=== PATIENT | male | born 1930 | race Caucasian/White ===

== ENCOUNTER 2017-01-11 16:08 | Inpatient (IN) | payer OTHER ==
[~2017-01-11] VITALS: Ht 175.3 cm; Wt 95.5 kg
[~2017-01-11 16:08] MED LIST: ADVAIR HFA120 INHALA IH; AEROECLIPSE1 EACH MC; AMLODIPINE BESYL5 MG PO; DALIRESP500 MCG PO; DUONEB 2.5-0.5 M3 ML IH; HYDROXYZINE PAM25 MG PO; LEVAQUIN750 MG PO; METOPROLOL SUCC25 MG; METOPROLOL TART25 MG PO; NORVASC5 MG PO; OMEPRAZOLE20 MG PO; PREDNISONE10 MG PO; PREDNISONE20 MG PO; PRILOSEC20 MG; PROAIR HFA8.5 GM IH; SIMVASTATIN; SIMVASTATIN20 M1 PO; SIMVASTATIN20 MG PO; SPIRIVA1 INHALATI IH; TOPROL XL50 MG; TYLENOL EXTRA500 MG PO
[2017-01-11 16:42] LABS: HEMATOCRIT 48.1 % (38.0-50.0); MCH 31.8 PG (29.0-34.0); MCHC 32.6 G/DL (30.0-36.0); MCV 97.6 FL (86-99); MEAN PLAT.VOLUME 10.1 uM^3 (9.0-12.4); PLATELET COUNT 170 K/uL (156-360); RBC DIS.WIDTH-CV 16.2 % (11.8-14.6); RBC DIS.WIDTH-SD 55.3 % (39-53); RED BLOOD COUNT 4.93 M/uL (4.00-5.50); WHITE BLOOD COUNT 8.9 K/uL (4.1-10.2)
[2017-01-11 16:50] LABS: CHLORIDE 111 mEq/L (99-109); POTASSIUM 4.6 mEq/L (3.7-5.4); SODIUM 143 mEq/L (136-147)
[2017-01-11] MEDS ORDERED: ARCAPTA NEOHAL75 MCG IH (16:51)
[2017-01-11 16:53] LABS: ANION GAP 11 MEQ/L (2-14); GLUCOSE 98 mg/dL (70-99)
[2017-01-11 16:56] LABS: GFR ESTIMATE (CALCULATED) 51 mL/min/
[2017-01-11 16:57] LABS: UREA NITROGEN (BUN) 24 mg/dL (9-23)
[2017-01-11 17:30] LABS: TROP-I INTERPRETATION NEGATIVE; TROPONIN-I 0.04 ng/mL (0.0-0.30)
[2017-01-11 18:56] LABS: COLOR BLOODY ((YELLOW)); GLUCOSE (STRIP) NEGATIVE; LEUKOCYTES TRACE; NITRITE NEGATIVE; PROTEIN (STRIP) 300
[2017-01-11 18:57] LABS: ADD MIUA? YES; BILIRUBIN MODERATE; BLOOD LARGE; ICTOTEST NEGATIVE; KETONES NEGATIVE; RED BLOOD CELLS TNTC /HPF (0-5); UCUL ADDED? YES; UROBILINOGEN 0.2 MG/DL (0.2-1.0)
[2017-01-11] MEDS ORDERED: DUONEB 2.5-0.5 M3 ML AEROSOL (19:45)
[2017-01-11] MEDS ORDERED: TYLENOL EXTRA500 MG PO (19:46)
[2017-01-11 19:48] LABS: BASE EXCESS -1.5 mEq/L (-3 to +3); BICARBONATE 22.9 mEq/L (22-26); CARBOXY HGB 2.4 % (0-5); COMMENTS - BLOOD GASES C+A+; DEVICE NCH; O2 FLOW 8 L/MIN; PCO2 37 mm Hg (35-45); PO2 49 mm Hg (80-100); SITE RR
[2017-01-11 20:00] LABS: D-DIMER ELISA 2.08 mg/L FEU (< 0.57)
[2017-01-12 07:13] LABS: HEMATOCRIT 44.7 % (38.0-50.0); MCH 32.9 PG (29.0-34.0); MCHC 33.3 G/DL (30.0-36.0); MCV 98.7 FL (86-99); MEAN PLAT.VOLUME 10.7 uM^3 (9.0-12.4); PLATELET COUNT 150 K/uL (156-360); RBC DIS.WIDTH-CV 16.3 % (11.8-14.6); RBC DIS.WIDTH-SD 58.3 % (39-53); RED BLOOD COUNT 4.53 M/uL (4.00-5.50); WHITE BLOOD COUNT 9.3 K/uL (4.1-10.2)
[2017-01-12 07:20] LABS: EOSINOPHIL (%) 0 % (0-5); IMMATURE GRANULOCYTE (%) 0.2 % (0.0-0.7); LYMPHOCYTE COUNT 0.4 K/uL (1.0-2.8); MONOCYTE (%) 1.5 % (3-12); MONOCYTE COUNT 0.1 K/uL (0-0.8); NEUTROPHIL (%) 93.9 % (45-76); NEUTROPHIL COUNT 8.7 K/uL (1.8-6.4)
[2017-01-12 07:21] LABS: ANION GAP 11 MEQ/L (2-14); CHLORIDE 108 MEQ/L (99-109); GFR ESTIMATE (CALCULATED) 51 mL/min/; GLUCOSE 139 mg/dL (70-99); POTASSIUM 4.4 MEQ/L (3.7-5.4); SAMPLE HEMOLYSIS CHECK 0; SAMPLE ICTERIC CHECK 0; SAMPLE LIPEMIA CHECK 0; SODIUM 144 MEQ/L (136-147); UREA NITROGEN (BUN) 25 mg/dL (9-23)
[2017-01-12 07:30] LABS: TROP-I INTERPRETATION NEGATIVE; TROPONIN-I 0.05 ng/mL (0.0-0.30)
[2017-01-12 15:18] VITALS: BP 11/62; BP 111/62
[2017-01-12 19:20] VITALS: BP 112/62
[2017-01-12 23:50] VITALS: BP 108/63
[2017-01-13 03:27] VITALS: BP 107/67
[2017-01-13 07:24] VITALS: BP 103/58
[2017-01-13 11:37] VITALS: BP 95/56
[2017-01-13 15:51] VITALS: BP 108/60
[2017-01-13 19:53] VITALS: BP 127/71
[2017-01-14] VITALS (7 sets, daily range): BP systolic 90–108; BP diastolic 57–67
[2017-01-14 06:39] LABS: HEMATOCRIT 45.1 % (38.0-50.0); MCH 32.7 PG (29.0-34.0); MCHC 32.8 G/DL (30.0-36.0); MCV 99.6 FL (86-99); MEAN PLAT.VOLUME 10.2 uM^3 (9.0-12.4); PLATELET COUNT 141 K/uL (156-360); RBC DIS.WIDTH-CV 16.2 % (11.8-14.6); RBC DIS.WIDTH-SD 58.9 % (39-53); RED BLOOD COUNT 4.53 M/uL (4.00-5.50); WHITE BLOOD COUNT 11.6 K/uL (4.1-10.2)
[2017-01-14 07:06] LABS: ANION GAP 10 MEQ/L (2-14); CHLORIDE 102 MEQ/L (99-109); GFR ESTIMATE (CALCULATED) 38 mL/min/; GLUCOSE 123 mg/dL (70-99); POTASSIUM 4.1 MEQ/L (3.7-5.4); SAMPLE HEMOLYSIS CHECK 0; SAMPLE ICTERIC CHECK 0; SAMPLE LIPEMIA CHECK 0; SODIUM 141 MEQ/L (136-147); UREA NITROGEN (BUN) 37 mg/dL (9-23)
[2017-01-14 07:59] LABS: EOSINOPHIL (%) 0 % (0-5); IMMATURE GRANULOCYTE (%) 0.2 % (0.0-0.7); LYMPHOCYTE COUNT 0.3 K/uL (1.0-2.8); MONOCYTE COUNT 0.4 K/uL (0-0.8); NEUTROPHIL (%) 94.6 % (45-76)
[2017-01-15] VITALS: BP 123/90
[2017-01-15 04:00] VITALS: BP 128/81
[2017-01-15 07:05] LABS: ANION GAP 8 MEQ/L (2-14); CHLORIDE 101 MEQ/L (99-109); GFR ESTIMATE (CALCULATED) 51 mL/min/; GLUCOSE 145 mg/dL (70-99); POTASSIUM 3.8 MEQ/L (3.7-5.4); SAMPLE HEMOLYSIS CHECK 0; SAMPLE ICTERIC CHECK 0; SAMPLE LIPEMIA CHECK 0; SODIUM 141 MEQ/L (136-147); UREA NITROGEN (BUN) 39 mg/dL (9-23)
[2017-01-15 07:15] VITALS: BP 112/68
[2017-01-15 11:00] VITALS: BP 119/70
[2017-01-15 15:26] VITALS: BP 102/63
[2017-01-15 19:14] VITALS: BP 115/66
[2017-01-16 00:19] VITALS: BP 118/74
[2017-01-16 04:00] VITALS: BP 99/52
[2017-01-16 09:20] VITALS: BP 108/60
[2017-01-16 11:00] VITALS: BP 111/64
[2017-01-16 16:00] VITALS: BP 122/75
[2017-01-16 19:43] VITALS: BP 115/71
[2017-01-17] VITALS: BP 144/81
[2017-01-17 04:00] VITALS: BP 128/79
[2017-01-17 09:09] VITALS: BP 100/62
[2017-01-17] MEDS ORDERED: TAMSULOSIN HCL0.4 MG PO (11:13)
[2017-01-17] MEDS ORDERED: METOPROLOL TART25 MG PO (11:15)
[2017-01-17] MEDS ORDERED: K-DUR20 MEQ PO (11:16)
[2017-01-17] MEDS ORDERED: FUROSEMIDE40 MG PO (11:16)
[2017-01-17] MEDS ORDERED: PREDNISONE50 MG PO (11:19)
[2017-01-17] MEDS ORDERED: FINASTERIDE5 MG PO (11:19)
[2017-01-17 12:00] VITALS: BP 104/58
[2017-01-17] MEDS ORDERED: MUCINEX600 MG PO (12:34)
[2017-01-17 16:25] VITALS: BP 101/56
[2017-01-17 19:21] VITALS: BP 115/68
[2017-01-18 07:45] VITALS: BP 118/74
[2017-01-18 11:30] VITALS: BP 106/57
== END 2017-01-18 14:33 | disposition hospice, home (50) | DRG 190 ==
LOC: EME 16:08 → EDOF 19:30 → 4EAST 19:30
PROVIDERS: Emergency Medicine; Family Medicine Sports Medicine; Internal Medicine Pulmonary Disease
DX: J44.1 Chronic obstructive pulmonary disease with (acute) exacerbation (principal); J96.21 Acute and chronic respiratory failure with hypoxia; L03.115 Cellulitis of right lower limb; J98.11 Atelectasis; R31.0 Gross hematuria; I11.0 Hypertensive heart disease with heart failure; I50.9 Heart failure, unspecified; E78.5 Hyperlipidemia, unspecified; K21.9 Gastro-esophageal reflux disease without esophagitis; I27.2 Other secondary pulmonary hypertension; N21.0 Calculus in bladder; N40.1 Benign prostatic hyperplasia with lower urinary tract symptoms; I27.81 Cor pulmonale (chronic); Z99.81 Dependence on supplemental oxygen; Z87.891 Personal history of nicotine dependence; Z66 Do not resuscitate
CPT/HCPCS: 36600; 71010; 71020; 71250; 74177; 80048; 81003; 82803; 83880; 84484; 85025; 85027; 85379; 86850; 86900; 86901; 87040; 87086; 93005; 93306; 93970; 94010; 94640; 94640 76; 94760; 94799; 99202; 99281; 99285; J0696; J1940; J2930; J7050; J7512